=== PATIENT | male | born 1960 | race Caucasian/White ===

== ENCOUNTER 2017-11-27 16:34 | Inpatient (IN) ==
--- OUTSIDE RECORDS SUMMARY | 2017-11-27 16:49 | External Medical Summary ---
:1960 Author Organization [facility]. Summary purpose CCDA Sent to [facility] Chief Complaint and Reason for Visit No authorized Reason for Visit (Admitting Diagnosis) is available for this visit. Problem list No authorized problems tracked for continuity of care are available for this visit. Encounters No authorized problems tracked for encounter diagnoses are available for this visit. Medications No medications recorded for this patient visit Allergies, adverse reactions, alerts Allergen Category Ingredient Status Reaction Severity Onset Penicillins Drug Penicillins Active Rash Adolescence Immunizations No immunizations recorded for this patient visit Relevant diagnostic tests and/or laboratory data RESULTS CBC :20:00 Result Normal Range Units WBC 7.36 5.8-10.8 x103/mm3 Neutrophil % H 73.7 50-70 % Lymph % L 16.3 20-50 % Kershaw % 8.3 1.0-9.0 % Eosinophil % 1.2 0-4 % Basophil % 0.5 0-2 % Neutrophil # 5.42 3.0-7.0 x103/mm3 Lymph # 1.20 1.0-4.0 x103/mm3 Kershaw # 0.61 0.0-0.8 x103/mm3 Eosinophil # 0.09 0-0.5 x103/mm3 Basophil # 0.04 0-0.2 x103/mm3 RBC 5.44 4.60-6.20 x103/mm3 HGB 16.3 14.0-18.0 g/dl HCT 46.3 42.0-52.0 % MCV 85.1 80-94 FL MCH 30.0 27.0-31.0 pg MCHC 35.2 32.0-36.0 g/dl RDW 12.6 12-15 % Platelet 203 150-400 x103/mm3 MPV H 11.1 6.0-10.0 FL Chemistry Group :20:00 Result Normal Range Units Sodium 140 134-145 mmol/L Potassium 4.2 3.6-5.0 mmol/L Chloride 105 98-107 mmol/L CO2 25 22-30 mmol/L Glucose 96 75-110 mg/dl BUN H 24 9-20 mg/dl Creatinine .95 0.8-1.7 mg/dl eGFR 82 ml/min. Total Protein 7.4 6.3-8.2 g/dl Albumin 4.1 3.5-5.0 g/dl Calcium 9.8 8.4-10.2 mg/dl Alk Phos 89 38-126 U/L AST 23 14-36 U/L ALT 34 11-66 U/L T Bili 1.0 0.2-1.3 mg/dl A/G Ratio 1.2 Ratio Special Chemistry Group [id number]:00 Result Normal Range Units TSH 2.06 0.50-6.00 uIU/mL History of procedures Procedure Code Code Type Description Date Performed Performing Physician 95523 CPT-4 COMPLETE CBC, 04-23-2017 ARACELIS MORAES AUTOMATED 86791 CPT-4 COMPREHEN METABOLIC 04-23-2017 ARACELIS MORAES PANEL 70636 CPT-4 ASSAY THYROID STIM 04-23-2017 ARACELIS [facility] HORMONE Functional status No functional or cognitive status observations are available for this visit. Vital signs No authorized vital signs are available for this visit. Social history No Social History or smoking status observations were recorded for this visit. ( Unknown if ever smoked.) Treatment Plan No treatment plan text is available for this visit. Hospital discharge instructions No discharge instruction text is available for this visit.
--- OUTSIDE RECORDS SUMMARY | 2017-11-27 16:49 | External Medical Summary ---
:1960 Author Organization [facility]. Summary purpose CCDA Sent to [facility] Chief Complaint and Reason for Visit No [...] visit Relevant diagnostic tests and/or laboratory data No authorized results are available for this patient visit History of procedures Procedure Code Code Type Description Date Performed Performing Physician 39222 CPT-4 DIAGNOSTIC COLONOSCOPY 05-01-2017 ARACELIS MORAES Functional status Cognitive Status Finding Observation Time Level of Consciousne Alert [id number]:06 Vital signs Type Value Date Respirations 16 [id number]:00 Pulse 76 :00 O2 Saturation 99% :00 Systolic Blood Press 128mm/HG [id number]:00 Diastolic Blood Pres 80mm/HG :00 Temperature (Fahr) 98.6Degrees 46-53-054928:15 Social history No Social History or smoking status observations were recorded for this visit. ( Unknown if ever smoked.) Treatment Plan No treatment plan text is available for this visit. Hospital discharge instructions No discharge instruction text is available for this visit.
--- OUTSIDE RECORDS SUMMARY | 2017-11-27 16:49 | External Medical Summary | Continuity of Care Document ---
:1960 Author Organization [facility] Allergies Active Description Code Type Severity Reaction Onset Reported/ Identified Relationship Clinical to Patient Status Yes Penicillins 476 Drug N/A N/A Confirmed Aller or gy Verified Yes Penicillins 476 Drug N/A Rash 05/01/2017 Aller gy Medications There is no data. Problems Date Dx Attending Type Code Diagnosis Diagnosed By Coded 06/06/2014 Celso MORAES MD 789.05 ABDOMINAL PAIN ARACELIS [place] PERIUMBIL 03/10/2015 Aroldo Hardy Ot 724.2 04/23/2017 Celso MORAES MD R20.9 Unspecified ARACELIS [place] disturbances of skin sensation 05/01/2017 Celso MORAES MD Z12.11 Encounter for ARACELIS [place] screening for malignant neoplasm of colon Procedures Code Description [place] [address] ARACELIS BATISTA MD 06/06/2014 METABOLIC PANEL 17498 ARACELIS PERRY MD 06/06/2014 CBC, AUTOMATED 24087 ARACELIS BATISTA MD 04/23/2017 METABOLIC PANEL 56798 ASSAY ARACELIS MORAES MD 04/23/2017 THYROID STIM HORMONE [id number] ARACELIS PERRY MD 04/23/2017 CBC, AUTOMATED 94518 DIAGNOSTIC ARACELIS MORAES MD 05/01/2017 COLONOSCOPY Results Test Result Range CBC - 06/06/14 17:30 Eos # 0.25 x10^3 0-0.5 Eos % 3.3 % 0-4 HCT 42.2 % 42.0-52.0 HGB 14.3 G/DL 14.0-18.0 Lymph # 1.70 x10^3 1.0-4.0 Lymph % 22.3 % 20-50 MCH 29.5 PG 27.0-31.0 MCHC 33.9 G/DL 32.0-36.0 MCV 87.0 FL 80-94 Preston # 0.58 x10^3 0.0-0.8 Preston % 7.6 % 1.0-9.0 MPV 11.0 FL 6.0-10.0 Platelet 263 x10^3 150-400 RBC 4.85 x10^3 4.60-6.20 RDW 12.5 % 12-15 WBC 7.63 x10^3 5.8-10.8 Baso # 0.04 x10^3 0-0.2 Baso % 0.5 % 0-2 Neut % 66.3 % 50-70 Neut # 5.06 x10^3 3.0-7.0 Comprehensive Metabolic Panel - 06/06/14 17:30 Sodium 140 MMOLL 134-145 Potassium 4.4 MMOLL 3.6-5.0 Chloride 100 MMOLL 98-107 CO2 27 MMOLL 22-30 Glucose 89 MG/DL 75-110 BUN 24 MG/DL 9-20 Creatinine 1.0 MG/DL 0.8-1.7 Calcium 9.2 MG/DL 8.4-10.2 T Bili .7 MG/DL 0.2-1.3 T. Protein 7.2 G/DL 6.3-8.2 A/G Ratio 1.0 RATIO Albumin 3.7 G/DL 3.5-5.0 Alk Phos 83 U/L 38-126 ALT 35 U/L 11-66 AST 49 U/L 14-36 CBC - 04/23/17 14:46 Eos # 0.09 x10^3 0-0.5 Eos % 1.2 % 0-4 HCT 46.3 % 42.0-52.0 HGB 16.3 G/DL 14.0-18.0 Lymph # 1.20 x10^3 1.0-4.0 Lymph % 16.3 % 20-50 MCH 30.0 PG 27.0-31.0 MCHC 35.2 G/DL 32.0-36.0 MCV 85.1 FL 80-94 Preston # 0.61 x10^3 0.0-0.8 Preston % 8.3 % 1.0-9.0 MPV 11.1 FL 6.0-10.0 Platelet 203 x10^3 150-400 RBC 5.44 x10^3 4.60-6.20 RDW 12.6 % 12-15 WBC 7.36 x10^3 5.8-10.8 Baso # 0.04 x10^3 0-0.2 Baso % 0.5 % 0-2 Neut % 73.7 % 50-70 Neut # 5.42 x10^3 3.0-7.0 Comprehensive Metabolic Panel - 04/23/17 14:46 Sodium 140 MMOLL 134-145 Potassium 4.2 MMOLL 3.6-5.0 Chloride 105 MMOLL 98-107 CO2 25 MMOLL 22-30 Glucose 96 MG/DL 75-110 BUN 24 MG/DL 9-20 Creatinine .95 MG/DL 0.8-1.7 Calcium 9.8 MG/DL 8.4-10.2 T Bili 1.0 MG/DL 0.2-1.3 T. Protein 7.4 G/DL 6.3-8.2 A/G Ratio 1.2 RATIO Albumin 4.1 G/DL 3.5-5.0 Alk Phos 89 U/L 38-126 ALT 34 U/L 11-66 AST 23 U/L 14-36 EGFR 82 MLMIN TSH - 04/23/17 14:47 TSH 2.06 UIUML 0.50-6.00 Encounters ACCT No. Visit Discharge Status Pt. Type Provider Facility Loc./Unit Complaint Date/Time [id number] 02/21/2015 02/21/2015 CLS Outpatien Jaya Hardy RAD 237 16:11:00 23:59:59 t [facility] [id number] 05/01/2017 05/01/2017 DIS Outpatien [facility] Verena ARTURO 06:30:00 09:08:00 t MD [facility] [id number] 04/23/2017 04/23/2017 DIS Outpatien [facility] [place] ALAB 13:54:00 13:54:00 t MD [facility] [id number] 06/07/2014 06/07/2014 DIS Outpatien [facility] Verena ALAB 07:51:00 07:51:00 t MD [facility]
[2017-11-27] MEDS ORDERED: KETOROLAC 30 MG/ML INJECTION IVP PRN (17:04)
[2017-11-27] MEDS ORDERED: MORPHINE SULFATE 4mg INJECTION IVP PRN (17:04)
[2017-11-27] MEDS ORDERED: ONDANSETRON 4 MG/2 ML INJECTION IVP PRN (17:05)
[2017-11-27] MEDS ORDERED: METOCLOPRAMIDE 10mg/2ml INJECTION IVP PRN (17:10)
[2017-11-27 17:13] VITALS: BMI 23.5
[2017-11-27] MEDS ORDERED: D5NS 1,000 ML IV SCH (17:15)
[2017-11-27] MEDS: NS 1,000 ML IV SCH (17:25)
[2017-11-27] MEDS: LEVOFLOXACIN 500 MG/100 ML PREMIX IV SCH (17:27)
--- NOTE | 2017-11-27 18:26 | General Surg History&Physical ---
- History of Present Illness Chief complaint: diverticulitis [facility] Patient Stated Medical History History of Diverticulitis 2013 Psoriasis Shingles Surgical History: Tonsilectomy age 5. Vasectomy. 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 [place] Current residence: Apartment/Private Home Medications Home Medications Medication Instructions Recorded Confirmed Type Clobetasol 0.05% Top Soln 1 applicatio TOP DAILY 11/27/17 11/27/17 History [Temovate Soln] Clobetasol Propionate/Emoll 1 applicatio TOP DAILY 11/27/17 11/27/17 History [Clobetasol Emollient 0.05% Crm] Levofloxacin [Levaquin] 500 mg PO WS 11/27/17 11/27/17 History MetroNIDAZOLE [Flagyl] 500 mg PO TID 11/27/17 11/27/17 History Allergies Allergy/AdvReac Type Severity Reaction Status Date / Time Penicillins Allergy Unknown Verified 11/27/17 17:09 Review of Systems 10-point ROS: negative except for HPI and the following: - General General: Present: fever ("hot flashes") - Musculoskeletal Musculoskeletal: Present: joint pain - Vital Signs Last Vital Signs Temp 98.9 F 11/27/17 17:16 Pulse 99 11/27/17 17:16 Resp 16 11/27/17 17:16 BP 154/89 H 11/27/17 17:16 Pulse Ox 99 11/27/17 17:16 Hospital Course Summary Disclaimer: The visit summary below is not to be considered part of the above Progress Note.
[2017-11-27] MEDS: MetroNIDAZOLE PB 500 MG/100 ML BAG IV SCH (18:39)
[2017-11-27] MEDS: CLOBETASOL 0.05% CREAM 15gm TOP SCH (18:45)
[2017-11-27] MEDS: FAMOTIDINE 20 MG in NS 50 ML IV SCH (20:10)
[2017-11-28] MEDS: MetroNIDAZOLE PB 500 MG/100 ML BAG IV SCH ×4 (00:18→18:05)
[2017-11-28] MEDS: NS 1,000 ML IV SCH ×3 (04:26→18:04)
--- NOTE | 2017-11-28 07:47 | General Surgery Progress Note ---
Subjective Patient reports: feels better (denies nausea), pain is less (. He has not used any narcotic pain medication and states he feels that he can get around better. He did have a couple of bowel movements during the evening and at that time also noticed some slight "tingling" when he urinated.), afebrile Narrative: Denies chest pain, shortness of breath. - Vital Signs Last Vital Signs Temp 98.6 F 11/28/17 07:27 Pulse 91 11/28/17 07:27 Resp 16 11/28/17 07:27 BP 134/76 11/28/17 07:27 Pulse Ox 99 11/28/17 07:27 - Abnormal Exam Abdominal: tender (mild tenderness mid lower pelvic region with fairly deep palpation. Was able to palpate significantly deeper this morning than last night. Last night and was only able to palpate very minimal without him "jumping ". Left lower quadrant pain with palpation is minimal this morning. Remainder of abdomen is nontender to palpation.) - Normal Exam General: awake, alert, oriented Cardiovascular: regular rate Respiratory: clear bilaterally, no labored breathing Abdominal: soft Psychiatric: normal affect Neurological: CN 2-12 grossly intact Assessment and Plan (1) Diverticulitis large intestine Current Visit: Yes Status: Acute Plan: Diverticulitis appears to be responding well to IV antibiotics. Pain particularly in the lower mid pelvic region is still noticeably less than last night. Continue clear liquids. CBC daily. Continue Flagyl and Levaquin. Hospital Course Summary Disclaimer: The visit summary below is not to be considered part of the above Progress Note.
[2017-11-28] MEDS: FAMOTIDINE 20 MG in NS 50 ML IV SCH ×2 (08:59→20:03)
[2017-11-28] MEDS: LEVOFLOXACIN 500 MG/100 ML PREMIX IV SCH (10:03)
[2017-11-28] MEDS: CLOBETASOL 0.05% CREAM 15gm TOP SCH (12:32)
[2017-11-28] MEDS: CLOBETASOL 0.05% TOP. SOLUTION 50ml TOP SCH (12:32)
[2017-11-28] MEDS: METOCLOPRAMIDE 10mg/2ml INJECTION IVP SCH ×2 (12:36→20:03)
[2017-11-28] MEDS: CEFTRIAXONE 1 G in NS 50 ML IV SCH ×2 (12:55→13:36)
--- NOTE | 2017-11-28 16:31 | Progress Note ---
DATE OF SERVICE 11/28/2017 FINDINGS Mr. Bradley was seen this afternoon on rounds. He states that he does feel somewhat better and is not having as many "spasms". He states he has not been experiencing as much pain with urination. PHYSICAL EXAM VITAL SIGNS: Afebrile, normotensive. Please refer to EMR. CHEST: Clear to auscultation bilaterally. HEART: Regular rate and rhythm. Normal S1 and S2 without gallops, murmurs or clicks. ABDOMEN: Palpation of the abdomen does indeed reveal less tenderness today upon palpation. The patient still does display some minimal tenderness with firm palpation within the suprapubic region as well as just above the left inguinal region. This, however, is improved in comparison to yesterday. LABORATORY/RADIOGRAPHIC EVALUATION The patient had a CBC today and his white count is down slightly at 10.4. Hemoglobin is stable at 12.8. BMP obtained and found to be without marked abnormalities. ASSESSMENT 57-year-old gentleman with acute complicated bout of diverticulitis with CT scan evidence for acute sigmoid diverticulitis with associated pericolonic fluid collection/possible abscess. PLAN Continuation of broad-spectrum antibiotics. I did contact Infectious Disease, Dr. Woo, who was kind enough today to discuss the case by phone. She was not available today for an actual consult but did make recommendations to switch antibiotics to Rocephin and Flagyl. Antibiotics have been changed accordingly. Dr. Woo stated that she could see the patient at the beginning of next week. Consult was put forth to Dr. Woo. We will continue with antibiotics over the course of the weekend. May repeat CT scan on Friday in followup in regards to this fluid collection. I am pleased with the patient's progress at this time. JULIA
--- NOTE | 2017-11-28 16:39 | History and Physical ---
FINDINGS Mr. Bradley is a 57-year-old gentleman. I saw the patient last evening as a result of his history and physical findings of abdominal pain in conjunction with an abnormal CT scan. Upon questioning Mr. Bradley last evening, he informed me that about four years ago he had a bout of diverticulitis. This was confirmed upon CT scan and was treated on an outpatient basis with oral antibiotics. The patient states about 3-4 weeks ago, he had developed what was thought to be that of a bladder infection. He states that he was having a fair amount of discomfort within the suprapubic region which was exacerbated with the process of urination. The patient states that he did undergo a urinalysis and was not found to have a bladder infection. Patient states that over the next few weeks his symptoms became more severe in nature and he began to notice that there was increasing pain within his left lower quadrant of his abdomen as well as within the suprapubic region. He began to have what he felt was more of bladder spasm-like type of discomfort. The patient presented to his primary care physician who appropriately proceeded with further evaluation including a CT scan of his abdomen and pelvis. CT scan was obtained and revealed evidence for diverticulitis with possible abscess being noted near the dome of the bladder. I was notified by his primary care physician and it was my recommendation that the patient should be admitted for closer observation as well as to initiate broad-spectrum antibiotics intravenously. The patient states that he did not have much in way of change in his bowel habits. He has not had diarrhea or significant constipation. He states that he has noted perhaps a slight increase in his stool frequency and has now been having 2-3 bowel movements a day instead of "one". Patient also shared with me that in April of last year he had underwent a colonoscopy that was normal. He also shared with me that he has noted that he has not had much in the way of an appetite over the last few weeks. He denied really any fever but stated at times he felt "chilled". PAST MEDICAL HISTORY Performed by my nurse practitioner, Pramod Ardon. PAST SURGICAL HISTORY Performed by my nurse practitioner, Pramod Ardon. MEDICATIONS Performed by my nurse practitionerPramod. ALLERGIES Performed by my nurse practitionerPramod. SOCIAL HISTORY Performed by my nurse practitionerPramod. FAMILY HISTORY Performed by my nurse practitionerPramod. REVIEW OF SYSTEMS Performed by my nurse practitionerPramod. PHYSICAL EXAMINATION GENERAL: Mr. Bradley is a 57-year-old gentleman who does not appear to be in acute distress. VITALS: Temperature 97.0. Pulse 89. Respirations 16. Blood pressure 129/74. SaO2 100% on room air. HEENT: Normocephalic. Pupils are equally round and react to light and accommodation. NECK: Supple without lymphadenopathy. CHEST: Clear to auscultation bilaterally. HEART: Regular rate and rhythm. Normal S1, S2, without gallops, murmurs or clicks. ABDOMEN: Palpation of the abdomen did reveal tenderness within the suprapubic region as well as within the left lower quadrant just above the inguinal ligament. He did have a component of voluntary guarding but was without evidence for involuntary guarding or rebound tenderness. I did not appreciate any evidence for hepatosplenomegaly nor other abnormal masses. EXTREMITIES: Without clubbing, cyanosis, or edema. NEURO: Cranial nerves II-XII grossly intact. Patient without focal, motor, or sensory deficits. LABORATORY/RADIOGRAPHIC REVIEW I did review the CT scan performed by his primary care physician performed on November 26, 2017. There is a marked abnormal appearance of the sigmoid colon with wall thickening and significant stranding of the pericolonic fat. This was similar but more severe in comparison to a prior CT scan performed in May 2014. Additionally, there was a loculated fluid collection near the dome of the urinary bladder which was suspicious for that of a possible abscess. ASSESSMENT 57-year-old gentleman with diverticulitis with associated pericolonic fluid collection/possible abscess. PLAN Admission to the hospital, initiation of broad-spectrum intravenous antibiotics , serial abdominal examinations. Yesterday evening when I had admitted the patient, it was my recommendation to the patient and his that we initiate broad-spectrum antibiotics. He does have a PENICILLIN ALLERGY and I had initially placed the patient on Levaquin and Flagyl. I informed the patient that my tentative plan is to continue to watch him carefully over the next several days from a clinical standpoint. Hopefully his abdominal pain will improve. I also informed the patient that we may repeat a CT scan in several days to see if this fluid collection is improving/or becoming more definitive for an abscess. I did spend some time discussing diverticulitis as an entity with the patient. I also reviewed outside records from his primary care physician as well as lab work obtained from yesterday consisting of a CBC, CMP. His white count was minimally elevated at 11.1. CMP was without marked abnormalities. The patient and his agreed with the proposed plan/ algorithm as stated above. MTDD
[2017-11-29] MEDS: MetroNIDAZOLE PB 500 MG/100 ML BAG IV SCH ×4 (00:23→17:27)
[2017-11-29] MEDS: METOCLOPRAMIDE 10mg/2ml INJECTION IVP SCH ×3 (04:37→20:12)
[2017-11-29] MEDS: NS 1,000 ML IV SCH ×3 (05:37→18:46)
[2017-11-29] MEDS: FAMOTIDINE 20 MG in NS 50 ML IV SCH ×2 (09:15→20:12)
[2017-11-29] MEDS: CLOBETASOL 0.05% CREAM 15gm TOP SCH (10:30)
--- NOTE | 2017-11-29 10:32 | Progress Note ---
DATE OF SERVICE 11/29/2017 FINDINGS Mr. Bradley was seen this morning on rounds. He states that he is continuing to improve. He states that he had one "bladder twinge" this morning. EXAM VITAL SIGNS: Afebrile, normotensive. Please refer to EMR. CHEST: Clear to auscultation bilaterally. HEART: Regular rate and rhythm. Normal S1 and S2 without gallops, murmurs or clicks. ABDOMEN: Abdomen is soft. Very minimal tenderness noted within the suprapubic region and left lower quadrant. Essentially today there is no evidence for guarding. LABORATORY/RADIOGRAPHIC EVALUATION Patient had a CBC today and his white count remains stable at 10.2. Hemoglobin is 13.3. ASSESSMENT 57-year-old gentleman with history for complicated bout of diverticulitis with fluid collection being noted adjacent to the bladder suspicious of possible developing abscess. Patient making marked clinical improvement with broad- spectrum intravenous antibiotics. PLAN Will continue with ongoing intravenous antibiotics. Will begin to advance diet as tolerated. Will continue to follow from a clinical standpoint. Patient likely will be able to be discharged on Friday if he continues to make clinical improvement. Will await Infectious Disease recommendations when they do see the patient on Friday. May repeat CT scan on Friday in followup in regards to this questionable developing abscess adjacent to the bladder. JULIA
[2017-11-29] MEDS: CLOBETASOL 0.05% TOP. SOLUTION 50ml TOP SCH (11:36)
[2017-11-29] MEDS: CEFTRIAXONE 1 G in NS 50 ML IV SCH (12:45)
[2017-11-30] MEDS: MetroNIDAZOLE PB 500 MG/100 ML BAG IV SCH ×5 (00:12→23:53)
[2017-11-30] MEDS: NS 1,000 ML IV SCH ×3 (01:58→13:41)
[2017-11-30] MEDS: METOCLOPRAMIDE 10mg/2ml INJECTION IVP SCH ×3 (05:05→20:25)
[2017-11-30] MEDS: FAMOTIDINE 20 MG in NS 50 ML IV SCH ×2 (08:15→20:25)
[2017-11-30] MEDS: CLOBETASOL 0.05% CREAM 15gm TOP SCH (08:15)
[2017-11-30] MEDS: CLOBETASOL 0.05% TOP. SOLUTION 50ml TOP SCH (08:15)
[2017-11-30] MEDS: CEFTRIAXONE 1 G in NS 50 ML IV SCH (12:31)
[2017-11-30] MEDS ORDERED: NS 1,000 ML IV SCH ×2 (13:30→21:00)
--- NOTE | 2017-11-30 14:39 | Progress Note ---
DATE OF SERVICE 11/30/2017 FINDINGS Mr. Bradley was seen earlier today. He states that he continues to improve. He did not notice severe pain during the process of defecation that he had been experiencing prior to admission. He has not been having pain on urination. He is now tolerating a regular diet. He did have a bowel movement this morning. PHYSICAL EXAM VITAL SIGNS: Afebrile, normotensive. Last recorded vitals include temperature 98.3, pulse 100, respirations 16, blood pressure 130/87, SAO2 98% on room air. HEENT: Normocephalic. Pupils are equally round and react to light and accommodation. CHEST: Clear to auscultation bilaterally. HEART: Regular rate and rhythm. Normal S1 and S2 without gallops, murmurs or clicks. ABDOMEN: Palpation of the abdomen today reveals it to be soft and essentially nontender. Patient states he did have some minimal tenderness within the suprapubic region but there was no element of guarding or rebound. LABORATORY/RADIOGRAPHIC EVALUATION The patient's hemoglobin overall is stable at 12.8. White count is slightly down at 9.5. ASSESSMENT 57-year-old gentleman with history of complicated diverticulitis. Prior CT scan revealing questionable pericolonic abscess. Patient making marked improvement with broad-spectrum intravenous antibiotics. PLAN Will go ahead and decrease his IV fluids today. Will order a CT scan of the abdomen and pelvis tomorrow morning. Will await Infectious Disease consult/ recommendations tomorrow. I feel the patient will likely to be able to be discharged tomorrow to home on some additional oral antibiotics. I did briefly discuss with the patient surgical management of diverticulitis. It is my intuition that we will likely not intervene with surgical intervention if this bout of diverticulitis resolves without incident and he does not have recurrence. JULIA
[2017-12-01] MEDS: METOCLOPRAMIDE 10mg/2ml INJECTION IVP SCH ×2 (04:04→11:36)
[2017-12-01] MEDS: MetroNIDAZOLE PB 500 MG/100 ML BAG IV SCH ×2 (06:02→12:38)
[2017-12-01 08:00] VITALS: RESP 18; O2SAT 98
[2017-12-01] MEDS ORDERED: SALINE FLUSH 10ml SYRINGE ONE (08:00)
[2017-12-01] MEDS ORDERED: IOHEXOL 300mg/ml 100ml INJECTION ONE (08:00)
--- NOTE | 2017-12-01 09:01 | CT Scan Report ---
Indication: diverticulitis, follow up of possible abscess PROCEDURE: CT abdomen pelvis w con: Encounter: Initial Comparison: None Technique: Axial CT images were performed through the abdomen and pelvis after the administration of intravenous contrast. Coronal and sagittal two-dimensional reformats. Automated Exposure Control and Iterative Reconstruction dose reducing techniques were utilized. Contrast: Omnipaque 300 99 mL Findings: The lung bases are clear. The liver is normal. The gallbladder is within normal limits. The spleen, pancreas and adrenal glands are normal. The kidneys show bilateral small low-attenuation foci which are too small to definitively characterize. No abdominal or pelvic lymphadenopathy. The bladder is diffusely thick-walled. Prostate and rectum are unremarkable. There is severe inflammation in the mid sigmoid colon with diffuse infiltration of the surrounding fat. There is a rim-enhancing abscess interposed between the sigmoid colon and the superior margin of the bladder best seen on coronal image #22 and axial image #75. This measures 4.6 x 2 x 3.5 cm in size. Small amount of free fluid present elsewhere in the pelvis. No bowel obstruction. The appendix is normal. Bone windows are unremarkable for age. Impression: Evidence of a perforated sigmoid diverticulitis with an abscess interposed between the sigmoid colon and the bladder. .
[2017-12-01] MEDS: CLOBETASOL 0.05% CREAM 15gm TOP SCH (09:07)
[2017-12-01] MEDS: FAMOTIDINE 20 MG in NS 50 ML IV SCH (09:08)
[2017-12-01] MEDS: CLOBETASOL 0.05% TOP. SOLUTION 50ml TOP SCH (09:08)
--- NOTE | 2017-12-01 09:41 | Infectious Disease Consult ---
Infectious Disease Consult Date of Consultation: 12/01/17 Requesting Physician: Walker Jacques Reason for Consultation: antibiotic recs History of Present Illness: Mr. Barros is a 57 y/o man who reports that a few weeks ago he had some discomfort with urination around his bladder. He was evaluated in his PCPs office he says that he thought he had a urinary tract infection however. Urine was checked and did not show any signs of infection. He does report that he was started on Levaquin approximately 2 weeks ago. The low abdominal discomfort has worsened and he started having night sweats and chills which prompted the Levaquin treatment. He then had a CT of the abdomen and pelvis done which showed diverticulitis with possible abscess near the dome of his bladder. He reports that Flagyl was added to the Levaquin prior to admission but he only took it for a day or 2. Was admitted to [facility] on November 27. He has been evaluated by Dr. Jacques who is recommending antibiotic therapy before surgical therapy. He was initially continued on Levaquin and Flagyl but then changed to Rocephin and Flagyl. Since his admission he has not had any he had some tachycardia noted on November 30. White blood cell count has been normal. Lactate and pro-calcitonin not been checked. Clinically he reports that his pain has significantly improved and his appetite is improving. He had a repeat CT of the abdomen and pelvis done this morning and the results of that was not known when I was evaluating the patient earlier this morning. Medications Home Medications Medication Instructions Recorded Confirmed Type Clobetasol 0.05% Top Soln 1 applicatio TOP DAILY 11/27/17 11/27/17 History [Temovate Soln] Clobetasol Propionate/Emoll 1 applicatio TOP DAILY 11/27/17 11/27/17 History [Clobetasol Emollient 0.05% Crm] Levofloxacin [Levaquin] 500 mg PO WS 11/27/17 11/27/17 History MetroNIDAZOLE [Flagyl] 500 mg PO TID 11/27/17 11/27/17 History Allergies Allergy/AdvReac Type Severity Reaction Status Date / Time Penicillins Allergy Unknown Verified 11/27/17 17:09 [facility] Patient Stated Medical History Cataracts Yes Other GI Yes: DIVERTICULITIS Other Yes: PAINFUL AND FREQUENT URINATION Shingles Yes Psoriasis Surgical History: Tonsilectomy age 5. Vasectomy. Normal colonoscopy 04/2017 [place] Family History: His brother about 5 years ago he thinks due to coronary artery disease. His father has had coronary artery bypass graft surgery. His mother has arthritis with multiple joints replaced. 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 Absent: fever(s) - EENMT Eyes: Absent: change in vision Mouth/Throat: Absent: sore throat - Cardiovascular Cardiovascular: Absent: chest pain - Respiratory Respiratory: Absent: dyspnea - Gastrointestinal Gastrointestinal: Present: abdominal pain. Absent: diarrhea, nausea, vomiting - Genitourinary Genitourinary: Present: difficulty urinating (discomfort, improved). Absent: dysuria, flank pain - Musculoskeletal Musculoskeletal: Absent: arthralgias - Integumentary/Breasts Integumentary: Present: rash (psoriasis) - Neurological Neurological: Absent: headache(s) - Endocrine Endocrine: Present: flushing ("hot flashes") Exam Vital Signs: Temperature 96.4 F L 12/01/17 07:59 Pulse Rate 100 12/01/17 07:59 Respiratory Rate 18 12/01/17 07:59 Blood Pressure 133/84 12/01/17 07:59 Pulse Oximetry 98 12/01/17 07:59 Height/Weight/BMI: Height 1.83 m Weight 77.8 kg Body Mass Index 23.5 - Constitutional Present: no acute distress, well nourished, well developed - Routine HEENT Exam Head: Present: normocephalic, atraumatic Eye: Present: EOMI, PERRL ENT: Present: mucous membranes moist, oropharynx clear, dentition normal - Routine Neck Exam Present: supple - Routine Respiratory Exam Present: CTA bilaterally - Routine Cardiovascular Exam Present: RRR - Routine Abdominal Exam Present: soft, normoactive bowel sounds, non tender, distended (mild). Absent: rebound, guarding - Routine Extremities Exam Absent: cyanosis, clubbing, edema - Routine Skin Exam Present: rash (some psoriasis over knees). Absent: intact - Routine Neurological Exam Present: alert, oriented X3, CN II-XII intact. Absent: motor deficit - Routine Psychiatric Exam Present: normal affect, normal thought process Results - Labs CBC & Chem 7: 12/01/17 04:14 11/28/17 07:43 - Impressions CT A/P 12/01: There is a rim-enhancing abscess interposed between the sigmoid colon and the superior margin of the bladder best seen on coronal image #22 and axial image #75. This measures 4.6 x 2 x 3.5 cm in size. Small amount of free fluid present elsewhere in the pelvis. No bowel obstruction. The appendix is normal. Bone windows are unremarkable for age. Impression: Evidence of a perforated sigmoid diverticulitis with an abscess interposed between the sigmoid colon and the bladder. Impression: Sigmoid diverticulitis, with evidence of perforation and abscess near bladder Abdominal pain, improving Psoriasis PCN allergy (rash) Recommendation: I defer any surgical management to Dr. Jacques. If he is felt to be clinically improving, he could be discharged home on cipro 500mg po bid and flagyl 500mg po bid for 3-4 weeks. I would recommend repeating a CT in about 2- 3 weeks to make sure this is resolving. He will likely require a somewhat prolonged course of antibiotics if the abscess is not drained. I'd be happy to see him in follow up if he is discharged.
[2017-12-01] MEDS: CEFTRIAXONE 1 G in NS 50 ML IV SCH (11:33)
--- NOTE | 2017-12-01 11:38 | General Surgery Progress Note ---
Subjective Patient reports: feels better, tolerating a regular diet, voiding w/o difficulty Narrative: No abd pain at rest or with activity, there is minimal pain with palpation mid pelvic area. No nausea. He feels like he is a little weak, and plans on not working tomorrow (if discharged today)and just going to an after school meeting. Denies chest pain, SOA, headache, or other concerns. - Vital Signs Last Vital Signs Temp 96.4 F L 12/01/17 07:59 Pulse 100 12/01/17 07:59 Resp 18 12/01/17 07:59 BP 133/84 12/01/17 07:59 Pulse Ox 98 12/01/17 07:59 - Laboratory Result Diagrams: 12/01/17 04:14 11/28/17 07:43 - Radiology 12/01 CT abd/pelvis Findings: The lung bases are clear. The liver is normal. The gallbladder is within normal limits. The spleen, pancreas and adrenal glands are normal. The kidneys show bilateral small low-attenuation foci which are too small to definitively characterize. No abdominal or pelvic lymphadenopathy. The bladder is diffusely thick-walled. Prostate and rectum are unremarkable. There is severe inflammation in the mid sigmoid colon with diffuse infiltration of the surrounding fat. There is a rim-enhancing abscess interposed between the sigmoid colon and the superior margin of the bladder best seen on coronal image #22 and axial image #75. This measures 4.6 x 2 x 3.5 cm in size. Small amount of free fluid present elsewhere in the pelvis. No bowel obstruction. The appendix is normal. Bone windows are unremarkable for age. Impression: Evidence of a perforated sigmoid diverticulitis with an abscess interposed between the sigmoid colon and the bladder. - Abnormal Exam Abdominal: tender (minimally in pelvic area with deep palpation) - Normal Exam General: awake, alert, oriented, no acute distress Cardiovascular: regular rate Respiratory: equal bilaterally, no labored breathing Abdominal: soft, non-tender (generally) Psychiatric: normal affect Neurological: CN 2-12 grossly intact Assessment and Plan (1) Diverticulitis large intestine Current Visit: Yes Status: Acute Plan: CT abd/pelves Findings: The lung bases are clear. The liver is normal. The gallbladder is within normal limits. The spleen, pancreas and adrenal glands are normal. The kidneys show bilateral small low-attenuation foci which are too small to definitively characterize. No abdominal or pelvic lymphadenopathy. The bladder is diffusely thick-walled. Prostate and rectum are unremarkable. There is severe inflammation in the mid sigmoid colon with diffuse infiltration of the surrounding fat. There is a rim-enhancing abscess interposed between the sigmoid colon and the superior margin of the bladder best seen on coronal image #22 and axial image #75. This measures 4.6 x 2 x 3.5 cm in size. Small amount of free fluid present elsewhere in the pelvis. No bowel obstruction. The appendix is normal. Bone windows are unremarkable for age. Impression: Evidence of a perforated sigmoid diverticulitis with an abscess interposed between the sigmoid colon and the bladder. Dr. Woo note reviewed, she recommends 3-4 weeks Cipro and Flagyl BID, and repeat CT in 2-3 weeks. Hospital Course Summary Disclaimer: The visit summary below is not to be considered part of the above Progress Note. Hospital Course: 11/28/2017 ASSESSMENT 57-year-old gentleman with acute complicated bout of diverticulitis with CT scan evidence for acute sigmoid diverticulitis with associated pericolonic fluid collection/possible abscess. PLAN Continuation of broad-spectrum antibiotics. I did contact Infectious Disease, Dr. Woo, who was kind enough today to discuss the case by phone. She was not available today for an actual consult but did make recommendations to switch antibiotics to Rocephin and Flagyl. Antibiotics have been changed accordingly. Dr. Woo stated that she could see the patient at the beginning of next week. Consult was put forth to Dr. Woo. We will continue with antibiotics over the course of the weekend. May repeat CT scan on Friday in followup in regards to this fluid collection. I am pleased with the patient's progress at this time. 11/29/2017 Will continue with ongoing intravenous antibiotics. Will begin to advance diet as tolerated. Will continue to follow from a clinical standpoint. Patient likely will be able to be discharged on Friday if he continues to make clinical improvement. Will await Infectious Disease recommendations when they do see the patient on Friday. May repeat CT scan on Friday in followup in regards to this questionable developing abscess adjacent to the bladder. 12/01/2017 CT abd/pelves Findings: The lung bases are clear. The liver is normal. The gallbladder is within normal limits. The spleen, pancreas and adrenal glands are normal. The kidneys show bilateral small low-attenuation foci which are too small to definitively characterize. No abdominal or pelvic lymphadenopathy. The bladder is diffusely thick-walled. Prostate and rectum are unremarkable. There is severe inflammation in the mid sigmoid colon with diffuse infiltration of the surrounding fat. There is a rim-enhancing abscess interposed between the sigmoid colon and the superior margin of the bladder best seen on coronal image #22 and axial image #75. This measures 4.6 x 2 x 3.5 cm in size. Small amount of free fluid present elsewhere in the pelvis. No bowel obstruction. The appendix is normal. Bone windows are unremarkable for age. Impression: Evidence of a perforated sigmoid diverticulitis with an abscess interposed between the sigmoid colon and the bladder. Dr. Woo note reviewed, she recommends 3-4 weeks Cipro and Flagyl BID, and repeat CT in 2-3 weeks.
[2017-12-01 11:59] VITALS: BP 134/87; PULSE 97; TEMP 98.7
--- NOTE | 2017-12-01 17:27 | Progress Note ---
DATE OF SERVICE 12/01/2017 FINDINGS Mr. Bradley was seen earlier this morning on rounds. He informs me that he currently has no abdominal pain. He has not been experiencing pain during the process of urination or upon defecation. VITAL SIGNS: Afebrile, normotensive. Current vitals include temperature 98.7, pulse 97, respirations 18, blood pressure 134/87, SAO2 98% on room air. HEENT: Normocephalic. Pupils are equally round and react to light and accommodation. CHEST: Clear to auscultation bilaterally. HEART: Regular rate and rhythm. Normal S1 and S2 without gallops, murmurs or clicks. ABDOMEN: Palpation of the abdomen today revealed it to be soft and completely nontender. No evidence for guarding or rebound. LABORATORY/RADIOGRAPHIC EVALUATION The patient had a CBC today and his white count stable at 10.6. Hemoglobin is stable at 13.3. The patient had a CT scan of his abdomen and pelvis that revealed an overall stable 4-cm abscess just posterior to the bladder between the bladder and the sigmoid colon region. The patient still had a fair amount of mesenteric fat stranding consistent with that of diverticulitis. ASSESSMENT 57-year-old gentleman with complicated bout of diverticulitis with pericolonic fluid collection/abscess noted in conjunction with CT scan findings consistent with that of diverticulitis. The patient is doing quite well from a clinical standpoint with no element of ongoing pain. PLAN The patient was informed that his abscess is about the "cut off" where we typically would proceed with percutaneous drainage. I informed the patient that as a general rule abscesses or fluid collections less than 3 cm will resolve with antibiotics. We typically recommend percutaneous drainage for abscesses larger than this. I did discuss the patient's CT scan earlier this morning with our radiologist. Radiologist states that there is only a very small window where one could perhaps proceed with percutaneous drainage of this fluid collection but it would be very technically difficult and would be a potential injury to the adjacent bladder. I have reviewed Dr. Woo's notes this morning as well from Infectious Disease. After assessing the patient's clinical status, physical findings, CT scan findings and laboratory findings it was my recommendation that we not intervene at this time with percutaneous drainage and place him on a prolonged course of oral antibiotics to see if we can resolve this small fluid collection/abscess located within the pouch of Ed between the bladder and colon. Dr. Woo has recommended discharging the patient home on Cipro and Flagyl. Will DC the patient to home on three to four weeks' worth of Cipro and Flagyl and repeat CT scan at a four--week interval. Will then have the patient follow up with me following this course of antibiotics and CT scan findings to reevaluate and make final recommendations. I informed the patient that if in the interim he begins to run a fever, begin to develop dysuria or pain again on defecation or an element of increasing abdominal pain that he should contact my office at that time and, of course, we would see him in a more timely fashion. The above plan/algorithm was discussed with the patient and his this morning. They understood and agreed. JULIA
--- NOTE | 2017-12-01 18:47 | Discharge Summary ---
Discharge Information Date of admission: 11/27/17 16:34 Anticipated date of discharge: 12/01/17 Attending Physician: Walker Jacques MD Primary care physician: Rob Duggan MD Consults: 11/29/17 08:13 Physician Consult [CONS] Routine Consulting Provider: Saray Woo Reason For Exam: diverticulitis Ordering Provider has Notified Front Desk Supervisor: Yes Comment: can see on Friday - Discharge Diagnosis (1) Diverticulitis large intestine Status: Acute - Procedures Procedures: none - Laboratory Labs: 12/01/17 04:14 11/28/17 07:43 - Radiology Radiology: 12/12/2017 CT abd pelvis Findings: The lung bases are clear. The liver is normal. The gallbladder is within normal limits. The spleen, pancreas and adrenal glands are normal. The kidneys show bilateral small low-attenuation foci which are too small to definitively characterize. No abdominal or pelvic lymphadenopathy. The bladder is diffusely thick-walled. Prostate and rectum are unremarkable. There is severe inflammation in the mid sigmoid colon with diffuse infiltration of the surrounding fat. There is a rim-enhancing abscess interposed between the sigmoid colon and the superior margin of the bladder best seen on coronal image #22 and axial image #75. This measures 4.6 x 2 x 3.5 cm in size. Small amount of free fluid present elsewhere in the pelvis. No bowel obstruction. The appendix is normal. Bone windows are unremarkable for age. Impression: Evidence of a perforated sigmoid diverticulitis with an abscess interposed between the sigmoid colon and the bladder. - History of Present Illness Chief complaint: diverticulitis HPI: FINDINGS Mr. Bradley is a 57-year-old gentleman. I saw the patient last evening as a result of his history and physical findings of abdominal pain in conjunction with an abnormal CT scan. Upon questioning Mr. Bradley last evening, he informed me that about four years ago he had a bout of diverticulitis. This was confirmed upon CT scan and was treated on an outpatient basis with oral antibiotics. The patient states about 3-4 weeks ago, he had developed what was thought to be that of a bladder infection. He states that he was having a fair amount of discomfort within the suprapubic region which was exacerbated with the process of urination. The patient states that he did undergo a urinalysis and was not found to have a bladder infection. Patient states that over the next few weeks his symptoms became more severe in nature and he began to notice that there was increasing pain within his left lower quadrant of his abdomen as well as within the suprapubic region. He began to have what he felt was more of bladder spasm-like type of discomfort. The patient presented to his primary care physician who appropriately proceeded with further evaluation including a CT scan of his abdomen and pelvis. CT scan was obtained and revealed evidence for diverticulitis with possible abscess being noted near the dome of the bladder. I was notified by his primary care physician and it was my recommendation that the patient should be admitted for closer observation as well as to initiate broad-spectrum antibiotics intravenously. The patient states that he did not have much in way of change in his bowel habits. He has not had diarrhea or significant constipation. He states that he has noted perhaps a slight increase in his stool frequency and has now been having 2-3 bowel movements a day instead of "one". Patient also shared with me that in April of last year he had underwent a colonoscopy that was normal. He also shared with me that he has noted that he has not had much in the way of an appetite over the last few weeks. He denied really any fever but stated at times he felt "chilled". Hospital Course This is a general summary of the patient's hospital course. For more details refer to the complete medical record. Hospital course: 11/28/2017 ASSESSMENT 57-year-old gentleman with acute complicated bout of diverticulitis with CT scan evidence for acute sigmoid diverticulitis with associated pericolonic fluid collection/possible abscess. PLAN Continuation of broad-spectrum antibiotics. I did contact Infectious Disease, Dr. Woo, who was kind enough today to discuss the case by phone. She was not available today for an actual consult but did make recommendations to switch antibiotics to Rocephin and Flagyl. Antibiotics have been changed accordingly. Dr. Woo stated that she could see the patient at the beginning of next week. Consult was put forth to Dr. Woo. We will continue with antibiotics over the course of the weekend. May repeat CT scan on Friday in followup in regards to this fluid collection. I am pleased with the patient's progress at this time. 11/29/2017 Will continue with ongoing intravenous antibiotics. Will begin to advance diet as tolerated. Will continue to follow from a clinical standpoint. Patient likely will be able to be discharged on Friday if he continues to make clinical improvement. Will await Infectious Disease recommendations when they do see the patient on Friday. May repeat CT scan on Friday in followup in regards to this questionable developing abscess adjacent to the bladder. 12/01/2017 CT abd/pelves Findings: The lung bases are clear. The liver is normal. The gallbladder is within normal limits. The spleen, pancreas and adrenal glands are normal. The kidneys show bilateral small low-attenuation foci which are too small to definitively characterize. No abdominal or pelvic lymphadenopathy. The bladder is diffusely thick-walled. Prostate and rectum are unremarkable. There is severe inflammation in the mid sigmoid colon with diffuse infiltration of the surrounding fat. There is a rim-enhancing abscess interposed between the sigmoid colon and the superior margin of the bladder best seen on coronal image #22 and axial image #75. This measures 4.6 x 2 x 3.5 cm in size. Small amount of free fluid present elsewhere in the pelvis. No bowel obstruction. The appendix is normal. Bone windows are unremarkable for age. Impression: Evidence of a perforated sigmoid diverticulitis with an abscess interposed between the sigmoid colon and the bladder. Dr. Woo note reviewed, she recommends 3-4 weeks Cipro and Flagyl BID, and repeat CT in 2-3 weeks. DC to home today Time spent with patient: 25 - 35 minutes Resuscitation Status: Full Code Discharge Plan - Med Rec/Dispo Referrals/Follow Up: Walker Jacques MD [Physician] - (12/29 at 2:30 at [facility] [place] [facility] [place] drink contrast for CT scan at 4:30 12/31 at [address] Jacques's office to discuss results, call the office before coming to confirm location (in the event we have moved to the surgery center)) Niko Instructions: Diverticulitis (DC) Prescriptions: New Ciprofloxacin [Cipro 500 mg] 500 mg PO BID 30 Days #60 tab MetroNIDAZOLE [Flagyl] 500 mg PO BID 30 Days #60 tab Ondansetron [Zofran Odt] 1 tab PO Q6HR PRN #10 tab PRN Reason: Nausea Continue Clobetasol 0.05% Top Soln [Temovate Soln] 1 applicatio TOP DAILY Clobetasol Propionate/Emoll [Clobetasol Emollient 0.05% Crm] 1 applicatio TOP DAILY Discontinued MetroNIDAZOLE [Flagyl] 500 mg PO TID Levofloxacin [Levaquin] 500 mg PO WS - Disposition 01 Discharged Home, Self-Care - Dismissal Complete Discharge Instructions are:: Complete
== END 2017-12-01 14:10 | disposition home or self-care (01) | DRG 392 ==
LOC: SRG 16:34
PROVIDERS: ADMIT Surgery; ATTEND Surgery